=== PATIENT | male | born 1940 | race Caucasian/White ===

== ENCOUNTER 2019-11-09 06:31 | Day surgery (SDC) | payer MEDICARE, BC ==
[2019-11-05 12:34] LABS: BASOPHILS % (AUTO) 0.4 % (0-1); EOSINOPHILS # (AUTO) 0.1 X10'3 (0-0.9); EOSINOPHILS % (AUTO) 1.1 % (0-6); LYMPHOCYTES # (AUTO) 2.1 X10'3 (1.1-4.8); LYMPHOCYTES % (AUTO) 23.3 % (21-51); MEAN CORPUSCULAR HEMOGLOBIN 32.7 PG (27.0-31.0); MEAN CORPUSCULAR HGB CONC 34.1 g/dL (33.0-36.5); MEAN CORPUSCULAR VOLUME 95.9 FL (78-98); MEAN PLATELET VOLUME 7.1 FL (7.4-10.4); MONOCYTES % (AUTO) 11.4 % (2-12); NEUTROPHILS # (AUTO) 5.8 X10'3 (1.8-7.7); NEUTROPHILS % (AUTO) 63.8 % (42-75); PRE OP HEMATOCRIT 44.6 % (42.0-52.0); PRE OP HEMOGLOBIN 15.2 g/dL (14.0-17.9); PRE OP PLATELET COUNT 231 X10'3 (140-440); RED BLOOD COUNT 4.65 X10'6 (4.70-6.10); RED CELL DISTRIBUTION WIDTH 13.6 % (11.5-14.5)
[2019-11-05 12:56] LABS: ALBUMIN 3.8 G/DL (3.4-5.0); ALKALINE PHOSPHATASE 48 IU/L (46-116); BLOOD UREA NITROGEN 24 MG/DL (7-18); BUN/CREATININE RATIO 18.5 (5.4-32.0); CALCIUM 9.2 MG/DL (8.5-10.1); CHLORIDE 105 MMOL/L (99-107); PRE OP ALT 33 U/L (30-65); PRE OP ANION GAP 7 (8-16); PRE OP AST 20 U/L (10-37); PRE OP BILIRUB, TOTAL 0.6 MG/DL (0.0-1.0); PRE OP GLUCOSE 89 MG/DL (70-104); PRE OP SODIUM 139 MMOL/L (135-145); TOTAL CARBON DIOXIDE 26.9 MMOL/L (24-32); TOTAL PROTEIN 7.6 G/DL (6.4-8.2); eGFR 53 ML/MIN
[~2019-11-09] VITALS: Ht 175.3 cm; Wt 86.2 kg
[2019-11-09] VITALS (10 sets, daily range): BP systolic 146–155; BP diastolic 75–85
[~2019-11-09 06:31] MED LIST: ATEN25TA PO; DOCUMENT DATE & TIME OF BETA-BLOCKER PO ONE; LOSA50TA3 PO; ROSU40TA PO; cefazolin/dext.iso 2gm/50ml 50 ML IV ONE; famotidine 20mg tablet PO ONE; ringers solution, lacted 1,000 ML IV SCH
[2019-11-09] MEDS ORDERED: BUPIVAcaine/PF 2.5mg/ml (0.25%) 10ml vial ONE (06:46)
[2019-11-09] MEDS ORDERED: LIDOcaine 0.5% (5mg/ml) 50ml vial ONE (07:29)
[2019-11-09] MEDS ORDERED: ringers solution, lacted 1,000 ML IV SCH (07:43)
[2019-11-09] MEDS ORDERED: proCHLORperazine 10 MG/2 ml inj IV PRN (07:45)
[2019-11-09] MEDS ORDERED: meperidine/PF 25mg/ml syringe IV PRN ×3 (07:45)
[2019-11-09] MEDS ORDERED: ondansetron/PF 4mg/2ml inj IV PRN (07:45)
[2019-11-09] MEDS ORDERED: morphine 2 MG/ML inj. syringe IV PRN (07:45)
[2019-11-09] MEDS ORDERED: morphine 4 MG/ML inj SYRINge IV PRN (07:45)
[2019-11-09] MEDS ORDERED: midazolam 2 mg/2 ml injection ONE (09:01)
[2019-11-09] MEDS ORDERED: fentaNYL/PF 50MCG/1 ML 2ML syringe ONE (09:01)
--- NOTE | 2019-11-09 09:44 | NUR ---
RECEIVED ROM OR VIA GURNEY ACCOMPANIED BY ANESTHESIOLOGIST DR KIM, REPORT GIVEN. PT AWAKE AND ALERT AND DENIES PAIN AT THIS TIME. 20 GAUGE PIV L HAND PATENT AND RUNNING LR AT 100 ML/HR. DRESSING R HAND /WRIST CDI. PPULSES PALAPABLE, UNABLE TO PALPATE R RADIAL COVERED BY DRESSING. BRISK CAP REFILL, SKIN PINK AND WARM, VSS, MICHAEL, RUE ELEVATED WITH ICE APPLIED.
--- NOTE | 2019-11-09 11:14 | NUR ---
PT AWAKE AND ALERT AND DENIES PAIN AT THIS TIME. 20 GAUGE PIV L HAND DC/D CATH TIP INTACT. DRESSING R HAND /WRIST CDI. PPULSES PALAPABLE, UNABLE TO PALPATE R RADIAL COVERED BY DRESSING. BRISK CAP REFILL, SKIN PINK AND WARM, VSS, MICHAEL, RUE ELEVATED WITH ICE APPLIED. TOLERATING FLUIDS, ABLE TO DRESS SELF WITH MIN ASSIST AND AMBULATE. DISCHARGE INSTRUCTIONS GIVEN AND PT VERBALIZED UNDERSTANDING. TRANSPORTED VIA WHEELCHAIR TO SPOUSE IN PRIVATE VEHICLE TO HOME.
== END 2019-11-09 11:14 | disposition home or self-care (01) ==
LOC: PAS 06:31
PROVIDERS: ATTEND Orthopaedic Surgery Hand Surgery
DX: M65.4 Radial styloid tenosynovitis [de Quervain] (principal); M72.0 Palmar fascial fibromatosis [Dupuytren]; S66.110A Strain of flexor muscle, fascia and tendon of right index finger at wrist and hand level, initial encounter; I25.10 Atherosclerotic heart disease of native coronary artery without angina pectoris; I25.2 Old myocardial infarction; M17.12 Unilateral primary osteoarthritis, left knee; I10 Essential (primary) hypertension; Z20.828 Contact with and (suspected) exposure to other viral communicable diseases; Z79.899 Other long term (current) drug therapy; Z79.01 Long term (current) use of anticoagulants; Z96.651 Presence of right artificial knee joint; Z98.890 Other specified postprocedural states; Z72.89 Other problems related to lifestyle; Z87.891 Personal history of nicotine dependence; Z87.01 Personal history of pneumonia (recurrent); Z95.5 Presence of coronary angioplasty implant and graft; X58.XXXA Exposure to other specified factors, initial encounter; Y93.89 Activity, other specified; Y92.89 Other specified places as the place of occurrence of the external cause; Y99.8 Other external cause status
CPT/HCPCS: 25000; 26121; 26418; 36415; 71046; 80053; 82948; 85025; 87635; 93005; J2001; J2250; J3010; J3490; A4215; A4618; A7000; J7120